=== PATIENT | male | born 1980 | race Caucasian/White ===

== ENCOUNTER 2022-07-29 11:25 | Emergency (ER) | payer SELFPAY ==
[2022-07-29] MEDS ORDERED: Boostrix 0.5 ML (Tdap) VIAL (>/=7 yrs of age) ONE (13:17)
[2022-07-29] MEDS ORDERED: Lidocaine 4% Cream 5 GM TUBE w/ Tegaderm ONE ×2 (13:20→14:14)
[2022-07-29 14:05] LABS: Hemoglobin 15.7 g/dL (14.0-18.0); Mean Corpuscular HGB CONC 33.5 g/dL (32.0-36.0); Mean Corpuscular Hemoglobin 31.7 pg (27.0-31.0); Mean Corpuscular Volume 94.7 fL (78.0-98.0); Mean Platelet Volume 6.5 fL (7.4-10.4); Platelet Count 207 thou/uL (130-400); RBC Distribution Width 12.1 % (11.5-14.5); Red Blood Cell (RBC) Count 4.94 mill/uL (4.70-6.10); White Blood Cell (WBC) Count 6.8 thou/uL (4.8-10.8)
[2022-07-29] MEDS ORDERED: Lidocaine 1% PF 5 ML VIAL ONE (14:15)
[2022-07-29 14:20] LABS: Band 7 % (5-11); Eosinophils 2 % (0-10); Lymphocytes 12 % (21-51); MDiff Complete? YES; Monocytes 6 % (0-10); Neutrophil 62 % (42-75); Platelet Morphology Comment Appears Adequate; Polychromasia SLIGHT = 2-3 cells (100X) (0-2/hpf); Reactive Lymphocytes 11 % (0-10)
[2022-07-29 14:21] LABS: ALT (SGPT) 27 U/L (8-55); AST (SGOT) 21 U/L (5-34); Albumin 4.5 g/dL (3.5-5.0); Alkaline Phosphatase 94 U/L (40-110); Anion Gap 17 mmol/L (10-20); BUN (Urea Nitrogen) 15 mg/dL (8.9-20.6); Bilirubin, Total 1.6 mg/dL (0.2-1.2); Calc. Creatinine Clearance 0 mL/min (70-130); Calcium 9.5 mg/dL (7.8-10.44); Carbon Dioxide 25 mmol/L (22-29); Chloride 101 mmol/L (98-107); Estimated GFR 83; Globulin 2.8 g/dL (2.4-3.5); Glucose 107 mg/dL (70-105); Potassium 3.7 mmol/L (3.5-5.1); Protein, Total 7.3 g/dL (6.0-8.3); Sodium 139 mmol/L (136-145)
[2022-07-29] MEDS ORDERED: Lidocaine Viscous Sol 2% 15 ml UD Cup ONE (15:11)
[2022-07-29] MEDS ORDERED: Mag-Al 1200 mg/1200 mg/30 ML UDCUP ONE (15:11)
== END 2022-07-29 15:28 | disposition home or self-care (01) ==
LOC: ERS 11:25
DX: S01.81XA Laceration without foreign body of other part of head, initial encounter (principal); Z86.73 Personal history of transient ischemic attack (TIA), and cerebral infarction without residual deficits; F17.220 Nicotine dependence, chewing tobacco, uncomplicated; W22.8XXA Striking against or struck by other objects, initial encounter
CPT/HCPCS: 12011; 36415; 36416; 70450; 70486; 80053; 84484; 85025; 85379; 90471; 90715; 93005; 94760

== ENCOUNTER 2024-08-07 21:12 | Inpatient (IN) | payer SELFPAY ==
[2024-08-07] MEDS ORDERED: Morphine 10 MG/ML VIAL ONE (21:22)
[2024-08-07] MEDS ORDERED: fentaNYL 50 mcg/mL 1 mL Vial ONE (22:37)
[2024-08-07 22:59] LABS: #Basophils 0.06 10x3/uL (0.0-0.2); %Basophils 0.6 % (0.0-1.0); %Eosinophils 3.2 % (0.0-10.0); %Lymphocytes 17.5 % (21.0-51.0); Hematocrit 44.4 % (42.0-52.0); Hemoglobin 15.5 g/dL (14.0-18.0); Mean Corpuscular HGB CONC 34.9 g/dL (32.0-36.0); Mean Corpuscular Hemoglobin 31.6 pg (27.0-31.0); Mean Corpuscular Volume 90.6 fL (78.0-98.0); Platelet Count 182 10x3/uL (130-400); RBC Distribution Width 12.7 % (11.5-14.5)
[2024-08-07 23:06] LABS: ALT (SGPT) 20 U/L (8-55); AST (SGOT) 22 U/L (5-34); Albumin 4.3 g/dL (3.5-5.0); Alkaline Phosphatase 87 U/L (40-110); Anion Gap 17 mmol/L (10-20); BUN (Urea Nitrogen) 18 mg/dL (8.9-20.6); Bilirubin, Total 1.6 mg/dL (0.2-1.2); Calc. Creatinine Clearance 0 mL/min (70-130); Calcium 9.4 mg/dL (7.8-10.44); Carbon Dioxide 20 mmol/L (22-29); Chloride 106 mmol/L (98-107); Estimated GFR 73; Globulin 3.5 g/dL (2.4-3.5); Glucose 98 mg/dL (70-105); Potassium 3.3 mmol/L (3.5-5.1); Protein, Total 7.8 g/dL (6.0-8.3); Sodium 140 mmol/L (136-145)
[2024-08-07] MEDS ORDERED: Acetaminophen 325 MG TAB PO PRN (23:10)
[2024-08-07 23:59] VITALS: BMI 26.3
[2024-08-08] MEDS: traMADol HCl 50 MG TAB PO PRN (00:17)
[2024-08-08] MEDS: Ondansetron PF 4 MG/2 ML Vial IVP PRN (01:30)
[2024-08-08] MEDS: Famotidine 20 MG TAB PO SCH (07:20)
[2024-08-08] MEDS: TETANUS, DIPHTHERIA TOX,ADULT (TDVAX) 0.5 ML VIAL IM ONE (07:20)
[2024-08-08] MEDS: Morphine 4 MG/ML VIAL SLOW IVP PRN (07:50)
[2024-08-08] MEDS ORDERED: CEFAZOLIN 2 GM in Sodium Chloride 0.9% 100 ML IVPB SCH (08:00)
[2024-08-08] MEDS ORDERED: tiZANidine HCl 4 MG TAB PO PRN (08:08)
[2024-08-08] MEDS ORDERED: HYDROcodone/Acetaminophen 7.5/325 mg Tablet PO PRN ×2 (08:08)
[2024-08-08] MEDS: Ketorolac Tromethamine 30 MG (1 mL) VIAL IVP SCH (11:01)
[2024-08-08] MEDS: Ondansetron ODT 4 MG TAB PO PRN (19:23)
[2024-08-09] MEDS ORDERED: fentaNYL PF 100 MCG/2 ML SYRINGE ONE (06:47)
[2024-08-09] MEDS ORDERED: Midazolam HCl 2 mg/2 ml Vial ONE (06:47)
[2024-08-09] MEDS ORDERED: CEFAZOLIN 2 GM VIAL ONE (07:02)
[2024-08-09] MEDS ORDERED: Bupivacaine 0.25% HCL 30 ML VIAL ONE (07:02)
[2024-08-09] MEDS ORDERED: Sodium Chloride 0.9% 100 ML ONE ×2 (07:02→07:38)
[2024-08-09] MEDS ORDERED: PROPOFOL 40 ML ONE (07:02)
[2024-08-09] MEDS ORDERED: Bupivacaine PF 0.5% 30 ML VIAL ONE (07:02)
[2024-08-09] MEDS ORDERED: EPINEPHrine 1 MG/ML VIAL ONE (07:02)
[2024-08-09] MEDS ORDERED: Lidocaine 1% PF 5 ML VIAL ONE (07:02)
[2024-08-09] MEDS ORDERED: Dexmedetomidine 200 MCG/2 ML VIAL ONE (07:38)
[2024-08-09] MEDS ORDERED: Dexamethasone 20 MG/5 ML VIAL ONE (07:45)
[2024-08-09] MEDS ORDERED: Ondansetron PF 4 MG/2 ML Vial ONE (07:45)
[2024-08-09] MEDS ORDERED: Promethazine HCl 25 MG/ML VIAL IM PRN (09:52)
[2024-08-09] MEDS ORDERED: Ondansetron HCl/PF 4 MG/2 ML Vial IVP PRN (09:52)
[2024-08-09 11:57] VITALS: BP 130/86; TEMP 97.2
== END 2024-08-09 15:38 | disposition home or self-care (01) | DRG 512 ==
LOC: ERS 21:12 → SURG B 22:48
PROVIDERS: ADMIT Specialist; ATTEND Specialist
PROC: 0PSH04Z Reposition Right Radius with Internal Fixation Device, Open Approach (ICD-10-PCS; principal; 2024-08-09)
PROC: 01N50ZZ Release Median Nerve, Open Approach (ICD-10-PCS; 2024-08-09)
PROC: 3E033XZ Introduction of Vasopressor into Peripheral Vein, Percutaneous Approach (ICD-10-PCS; 2024-08-09)
DX: S52.501A Unspecified fracture of the lower end of right radius, initial encounter for closed fracture (principal); S52.601A Unspecified fracture of lower end of right ulna, initial encounter for closed fracture; G56.01 Carpal tunnel syndrome, right upper limb; Z90.89 Acquired absence of other organs
CPT/HCPCS: 29125; 36415; 80053; 85025; 86850; 86900; 86901; 96374; 96375; C1713; G0390; J0171; J0665; J1100; J1885; J2250; J2270; J2272; J2405; J2704; J3010; Q0162

== ENCOUNTER 2025-11-07 14:51 | Outpatient (CLI) | payer OTHER, SELFPAY ==
[2025-11-07 15:34] LABS: #Basophils 0.04 10x3/uL (0.0-0.2); #Eosinophils 0.18 10x3/uL (0.0-0.7); #Monocytes 0.49 10x3/uL (0.11-0.59); #Neutrophils 3.61 10x3/uL (1.40-6.50); %Basophils 0.7 % (0.0-1.0); %Eosinophils 3.1 % (0.0-10.0); %Lymphocytes 26.3 % (21.0-51.0); %Monocytes 8.3 % (0.0-10.0); %Neutrophils 61.3 % (42.0-75.0); Hematocrit 48.0 % (42.0-52.0); Hemoglobin 15.8 g/dL (14.0-18.0); Mean Corpuscular Hemoglobin 30.6 pg (27.0-31.0); Mean Corpuscular Volume 92.8 fL (78.0-98.0); Platelet Count 194 10x3/uL (130-400); Red Blood Cell (RBC) Count 5.17 mill/uL (4.70-6.10); White Blood Cell (WBC) Count 5.89 10x3/uL (4.8-10.8)
== END 2025-11-07 14:52 | disposition home or self-care (01) ==
LOC: LABBT 14:51
PROVIDERS: ATTEND Orthopaedic Surgery
DX: Z01.812 Encounter for preprocedural laboratory examination (principal); T84.84XA Pain due to internal orthopedic prosthetic devices, implants and grafts, initial encounter
CPT/HCPCS: 85025